=== PATIENT | male | born 1965 | race Two or more races ===

== ENCOUNTER 2022-10-01 15:03 | Emergency (ER) | payer OTHER ==
[2022-10-01] MEDS ORDERED: CALCIUM CHLOR(10%) 100MG/ML 10ML SYRINGE IV ONE (15:04)
[2022-10-01] MEDS ORDERED: EPINEPHrine HCL 1 MG/10 ML SYRG IV ONE (15:04)
[2022-10-01] MEDS ORDERED: MAGNESIUM SULF 50% 40 MEQ/10 ML VL IV ONE (15:04)
[2022-10-01] MEDS ORDERED: SODIUM BICARBONATE 8.4% INJ 50ML SYRINGE IV ONE (15:04)
[2022-10-01] MEDS ORDERED: ATROPINE SULF 1 MG/10ml SYR IV ONE (15:04)
== END 2022-10-01 20:10 ==
LOC: ER 15:03 → EDBD 15:03 → ER 20:10
DX: I46.9 Cardiac arrest, cause unspecified (principal)
CPT/HCPCS: 31500; 92950; 99285; J0171; J3475